=== PATIENT | female | born 1975 | race African-American/Black ===

== ENCOUNTER 2024-05-27 10:22 | Day surgery (SDC) | payer OTHER, SELFPAY ==
[2024-05-01 13:10] VITALS: BMI 39.2
--- NOTE | 2024-05-27 06:58 | WPDANESEPPF ---
Anes - Initial Pre Proc Eval Procedure: Operation Date: 05/27/24 12:15 Proposed Procedures p Screening Colonoscopy - Enzo Godwin MD Date/Time: 05/27/24 06:58 Surgeon: Enzo Godwin MD Pre Op Diagnosis: Neoplasm Screening Patient Data Age: 49 Gender: F Height: 1.68 m Weight: 111.15 kg Allergies Allergy/AdvReac Type Severity Reaction Status Date / Time morphine AdvReac Itching Verified 05/27/24 11:12 Home Medications Medication Instructions Recorded Confirmed Type Singulair 1 tab-cap PO DIRECTED 05/05/24 05/27/24 History Ventolin 1 tab-cap PO DIRECTED 05/05/24 05/27/24 History atorvastatin 10 mg tablet 10 mg PO DIRECTED 05/05/24 05/27/24 History hydrochlorothiazide 25 mg tablet 25 mg PO DIRECTED 05/05/24 05/27/24 History metformin 500 mg tablet,extended 1,000 mg PO BID 05/27/24 05/27/24 History release 24 hr Patient hx anesthesia problems: none Family hx anesthesia problems: none Results Review: All pre-operative results and documents have been reviewed as part of the pre-operative evaluation. [facility] Past Medical History Medical History (Updated 05/27/24 @ 06:58 by Navin Bartholomew DO) Asthma Hyperlipidemia Hypertension Social History Social History Smoking status: Never smoker Substance use type: does not use Living arrangements: with family Anes - Eval Final PreProcedure Day of Procedure 05/27/24 06:58 Patient weight: obese Heart: regular rate and rhythm Lungs: clear to auscultation Airway: Mallampati scale class II Neurological: alert and oriented Last oral intake: >/= 8 hours ASA classification: III Emergent: no Anesthetic plan: proceed Anesthesia type and monitoring: general GIVS and standard monitoring Results Review: All pre-operative results and documents have been reviewed as part of the pre-operative evaluation. Informed Consent: The patient's anesthetic plan and its attendant risks and benefits were discussed with the patient/family/POA. Questions were solicited and answers provided to the satisfaction of the patient/family/POA.
[2024-05-27] MEDS: LACTATED RINGERS 1,000 ML 150 ML IV CONT (11:04)
[2024-05-27 11:06] VITALS: BP 131/85; PULSE 80; RESP 16; TEMP 37.1; O2SAT 100
[2024-05-27 11:21] LABS: Glucose Point of Care 78 mg/dl (65-105)
--- NOTE | 2024-05-27 12:00 | PM.HPGS ---
History of Present Illness History of Present Illness Consent: Risks, benefits, and alternatives have been discussed and questions answered. Patient agrees to proceed with procedure. Chief complaint: Neoplasm Screening, Family hx of colon polyps Narrative: Laura Escobedo is a 49 year old female referred for colonoscopy. Patient presents for neoplasia screening. Patient's current weight appetite and bowel habits are normal. She denies abdominal pain. Patient has had no bleeding. Family history is significant that her mother had colon polyps. Review of Systems Review of Systems: All systems reviewed & are unremarkable except as noted in HPI and below PMFSH Past Medical History Medical History (Updated 05/27/24 @ 12:02 by Enzo Godwin MD) Asthma Hyperlipidemia Hypertension Social History Social History Smoking status: Never smoker Substance use type: does not use Living arrangements: with family Meds Home Medications and Allergies Home Medications Medication Instructions Recorded Confirmed Type Singulair 1 tab-cap PO DIRECTED 05/05/24 05/27/24 History Ventolin 1 tab-cap PO DIRECTED 05/05/24 05/27/24 History atorvastatin 10 mg tablet 10 mg PO DIRECTED 05/05/24 05/27/24 History hydrochlorothiazide 25 mg tablet 25 mg PO DIRECTED 05/05/24 05/27/24 History metformin 500 mg tablet,extended 1,000 mg PO BID 05/27/24 05/27/24 History release 24 hr Allergies Allergy/AdvReac Type Severity Reaction Status Date / Time morphine AdvReac Itching Verified 05/27/24 11:12 Vital Signs Vital Signs - 24 hr 05/27/24 11:06 Temperature 98.7 F Pulse Rate 80 Respiratory Rate 16 Blood Pressure 131/85 Pulse Oximetry 100 Oxygen Delivery Room Air Exam Narrative: Physical exam reveals patient no signs stable. HEENT exam is unremarkable. Patient is anicteric. Lungs are clear to auscultation and percussion. Heart is without murmur or extra sounds. Abdomen bowel sounds are present soft nontender with no organomegaly. Digital and external rectal exam is normal. Assessment and Plan Assessment and plan (1) Screen for colon cancer: Code(s): Z12.11 - Encounter for screening for malignant neoplasm of colon Status: Acute Assessment and Plan: Patient presents today for neoplasia screening colonoscopy. Patient's mother had colon polyps. Plan for surveillance colonoscopy at this time. Further recommendations may be given after endoscopy.
[2024-05-27 12:42] VITALS: BP 129/81; PULSE 89; RESP 14; O2SAT 100
[2024-05-27 12:52] VITALS: BP 123/94; PULSE 83; RESP 15; O2SAT 100
[2024-05-27 13:02] VITALS: BP 137/84; PULSE 73; RESP 15; O2SAT 100
--- NOTE | 2024-05-27 13:47 | WPDANESPN ---
Anes - Prog Note Post-Op Date/Time: 05/27/24 13:47 Cardiovascular status: normal Respiratory status: normal Airway patency: baseline Mental status: baseline Post-Op hydration status: normal Vital Signs: Last Vital Signs Temp 37.1 C 05/27/24 11:06 Pulse 73 05/27/24 13:02 Resp 15 05/27/24 13:02 BP 137/84 05/27/24 13:02 Pulse Ox 100 05/27/24 13:02 O2 Del Method Room Air 05/27/24 13:02 Pain Score (VAS): 0 I/O: Intake & Output 05/26/24 05/27/24 05/27/24 23:59 07:59 15:59 Intake Total 700 Balance 700 05/27/24 11:14 POC Capillary Glucose 78 Post-procedural complaints: none Patient Feedback: Patient satisfied with anesthetic care. Other Findings: Patient vital signs back to baseline. Patient denies nausea and vomiting. Patient's pain under control. Patient OK for discharge.
== END 2024-05-27 13:23 | disposition home or self-care (01) ==
PROVIDERS: PCP Nurse Practitioner; Visit Provider Internal Medicine Gastroenterology
PROC: 0DJD8ZZ Inspection of Lower Intestinal Tract, Via Natural or Artificial Opening Endoscopic (ICD-10-PCS; CPT 45378; principal; 2024-05-27 12:15)
DX: Z12.11 Encounter for screening for malignant neoplasm of colon (principal); Z83.718 Family history of other colon polyps
CPT/HCPCS: 45378